=== PATIENT | female | born 1960 | race African-American/Black ===

== ENCOUNTER 2018-04-06 12:18 | Inpatient (IN) ==
--- NOTE | 2018-04-06 07:11 | Discharge Summary ---
<Lyndsey Salcedo E - Last Filed: 04/06/18 09:39> Orders not resulted at time of discharge: Pending orders 04/06/18 01:00 XR hip complete LT [XR] Routine Hemoglobin and Hematocrit [HEME] Routine Date of Encounter: 04/06/18 - Discharge Diagnosis (1) Arthritis of left hip Priority: Primary Status: Chronic (2) Status post total hip replacement, left Priority: Primary Status: Acute (3) Rheumatoid arthritis with positive rheumatoid factor Priority: Secondary Status: Chronic Qualifiers: Rheumatoid arthritis location: unspecified site Qualified Code(s): M05.9 - Rheumatoid arthritis with rheumatoid factor, unspecified (4) Hypertension Priority: Secondary Status: Chronic Qualifiers: Hypertension type: unspecified Qualified Code(s): I10 - Essential (primary ) hypertension - Hospital Course Hospital course: Ms. Cherry is a 57 year old female - Time Spent with Patient Total time spent providing and/or coordinating discharge services: - Discharge Medications Home Medications: Abatacept/Maltose [Orencia (For Outpatient Infusion)] 750 mg IV Q4W 04/06/18 [ History] Aspirin Enteric Coated [Aspirin EC] 325 mg PO BID 10 Days #20 tablet. [Rx] Cholecalciferol (D-3) [Vitamin D] 1,000 unit PO DAILY 04/06/18 [History] Etodolac 400 mg PO BID 04/06/18 [History] Losartan [Cozaar] 25 mg PO DAILY 04/06/18 [History] OxyCODONE Immed Rel [Roxicodone 5 MG] 5 mg PO Q6HR PRN 7 Days #28 tablet [Rx] Allergies/Adverse Reactions: 3 Allergy/AdvReac Type Severity Reaction Status Date / Time Penicillins Allergy Hives Verified 04/06/18 13:25 Primary care physician: PCP NONE - Patient Status Disposition: Transfer Inpatient Rehab Fac Condition: Good - Discharge Instructions Follow Up With: NONE,PCP [Primary Care Provider] - Additional Instructions: Discharge Instructions: Total Hip Replacement Please call [facility] ([phone]), your Primary Care Physician, or report to the Emergency Room if you have any of the following symptoms: Nausea, vomiting, fever greater that 101.5, swelling, chest pain, shortness of breath, increased pain/redness/drainage/odor for your incision site, numbness/ tingling, or any other concerning symptoms. ACTIVITY:Weight-bearing as tolerated for 8 weeks with hip dislocation precautions that physical therapy taught you. You may progress as tolerated under the guidance of your physical therapist. You do not need to sleep with a pillow between your legs. You can also seep on the operative side or on your stomach. MEDICATIONS: Upon discharge resume your home medications. Take all the medications as prescribed. Take a stool softener if taking narcotic pain medications. Stool softeners are only effective if you drink enough fluids. Drink 6-8 glass of water or fluids a day, unless this is not allowed for another health problem. Despite using stool softeners, if you haven't had a bowel movement in 3 days, please switch to a gentle laxative. Gentle laxatives are sold over the counter. You should have a bowel movement within 24 hours, if not call the office. You will be discharged from the hospital with a prescription for pain medication. You are encouraged to decrease the use of narcotic pain medication as tolerated. Should you require a refill, please call the office. [facility] prescribes narcotic pain medication for only 4-6 weeks after surgery. If you require pain medication beyond this time period, you may be referred to your Primary Care Physician or to the Pain Clinic for further evaluation. Plan ahead for refills on pain medication as many narcotics either need to be picked up at the office or mailed. It is best to call 48-72 hours in advance of needing a prescription refill so you don't run out of medication. To help control the post-operative pain, you may take NSAIDs (Aleve,Advil, Motrin, ibuprofen, naprosyn) or Tylenol as prescribed on the bottle in addition to the pain medication. ANTICOAGULATION (blood thinners): Continue your Aspirin, Lovenox or Coumadin as prescribed to help prevent a blood clot in the leg or in the lungs. As long as your incision remains dry and you tolerate the NSAIDs (Aleve, Advil, Motrin, Ibuprofen, Naprosyn), it is OK to use the NSAIDS while you are taking your anticoagulation medication. Should your incision start to drain, stop the NSAID and contact our office. Common symptoms of blood clot in the legs include: localized pain, swelling, calf tenderness, redness or discoloration of the skin. Blood clot in the lung symptoms include: shortness of breath, rapid pulse, sweating, and chest pain that worsens with deep breathing, coughing up blood, lightheadedness, feelings of anxiety. If you experience any of these symptoms notify your physician immediately, go to the emergency room, or if having trouble breathing, call 911. WOUND CARE: Leave the dressing on for 7 to 10days. You may change the dressing if it is saturated greater than 50%. Do not get the dressing wet at anytime. Wash your hands with antibacterial soap, rinse and dry prior to any wound care. If you have heaven the visiting nurse or rehab facility can remove the stapes 10-14 days after surgery and place steri-strips across the wound. Leave the steri-strips in place until they fall off on their own. You may let water from the shower run on top of the steri-strips. If you do not have a visiting nurse or rehab facility, you will need to return to the office at 10-14 days for the heaven to be removed. If you have itching or redness around the dressing call the office. FOLLOW-UP: Please follow up with your surgeon in the orthopedic clinic in 6 weeks from the day of surgery. If you have heaven that need to be removed, you will need to come back to the office in 10-14 days from the day of surgery. <Santosh Lopez - Last Filed: 04/09/18 07:50> Orders not resulted at time of discharge: Pending orders 04/06/18 01:00 XR hip complete LT [XR] Routine Hemoglobin and Hematocrit [HEME] Routine Date of Encounter: 04/09/18 Time of Encounter: 07:50 - Discharge Diagnosis (1) Obesity (BMI 30.0-34.9) Priority: Secondary Status: Chronic (2) Arthritis of left hip Priority: Primary Status: Chronic (3) Status post total hip replacement, left Priority: Primary Status: Acute (4) Rheumatoid arthritis with positive rheumatoid factor Priority: Secondary Status: Chronic Qualifiers: Rheumatoid arthritis location: unspecified site Qualified Code(s): M05.9 - Rheumatoid arthritis with rheumatoid factor, unspecified (5) Hypertension Priority: Secondary Status: Chronic Qualifiers: Hypertension type: unspecified Qualified Code(s): I10 - Essential (primary ) hypertension - Hospital Course Hospital course: Ms. Cherry is a 57 year old female Status post left total hip replacement The patient had an uneventful postoperative course. They received antibiotics and physical therapy and were discharged in stable condition. There will follow -up in the office in 2 weeks. - Time Spent with Patient Total time spent providing and/or coordinating discharge services: Primary care physician: PCP NONE - Patient Status Functional capacity at discharge: uses cane/walker Overall status at discharge: patient is progressing back to baseline
--- NOTE | 2018-04-06 07:12 | Physician Discharge Referral ---
ExtendedCare Referral Info Transfer To: [facility] Provider in Charge: Dr. Santosh Lopez - Diagnosis (1) Arthritis of left hip Priority: Primary Status: Chronic (2) Status post total hip replacement, left Priority: Primary Status: Acute (3) Rheumatoid arthritis with positive rheumatoid factor Priority: Secondary Status: Chronic (4) Hypertension Priority: Secondary Status: Chronic Expected Duration of Placement: Less than 30 days Prognosis: Good Aware of Diagnosis: Patient Aware of Prognosis: Patient - Transfer Medications Home Medications: raNITIdine HCl [Zantac] 150 mg PO BID #60 tablet 10/25/17 [Rx] Allergies/Adverse Reactions: 3 Allergy/AdvReac Type Severity Reaction Status Date / Time Penicillins Allergy Hives Verified 03/30/18 11:45 - Respiratory Orders Smoking Cessation: Smoking cessation has been advised. For more information, call the [employer] Quit Line at 1-495-DNTQ-NOW. - Ancillary Orders May use pressure relief devices daily prn, May go on SARAH w/family/respon green party w /meds at nurse discretion PRN, May consult with Dentist, Hr Generalist, Case Liner PRN - Mobility Orders Chair, Ambulate - Rehabiliation Orders Rehab Potential: Good Rehab Orders: Evaluation for Physical Therapy, Evaluation for Occupational Therapy Other: Total Hip replacement Precautions Apply cold therapy 3-6x/day for 20 minutes at a time. Encourage ambulation throughout the day and incentive spirometer 10x/hour. Elevate affected extremity as tolerated. Brace: Wear hip abduction pillow when laying/sleeping - Treatments Skin tear care topically daily PRN per policy List/Other: Opsite placed. Keep dressing intact until first follow up appointment. If greater than 50% saturated, notify office, remove dressing and place appropriate dressing back in place. Leave Zipline intact. Opsite dressing is water resistant, not water-proof. OK to shower, but do not get dressing wet. - Diet Orders Regular CERTIFICATION: I certify that the transfer of the above named patient to an Extended Care Facility is necessary for the continuing treatment of the diagnosis listed. The above information is true and accurate reflection of patient's current condition. Confidential - Redisclosure prohibited without a patient's written consent.
[~2018-04-06 12:18] MED LIST: Clindamycin 900 MG/50 ML 900 MG/50 ML IV.SOLN IVPB SCH
--- NOTE | 2018-04-06 12:51 | Anesthesia Evaluation PreOp ---
Date of Encounter: 04/06/18 Time of Encounter: 12:48 - Past History Planned Operation: left DAKSHA Cardiac History: HTN, Hyperlipidemia Pulmonary History: Denies Any Significant HX INSPECTOR TYPE History: Denies Any Significant HX Other Medical History: GERD, Other (Rheumatoid arthritis) Anesthesia History: No Prior Anesthetic Complications, Past Anesthesia ( hysterectomy, hemorrhoid, CTR, right total elbow arthroplasty) : No Alcohol Use: none Drug use: none Medications and Allergies raNITIdine HCl [Zantac] 150 mg PO BID #60 tablet 10/25/17 [Rx] Aspirin Enteric Coated [Aspirin EC] 325 mg PO BID 10 Days #20 tablet. [Rx] OxyCODONE Immed Rel [Roxicodone 5 MG] 5 mg PO Q6HR PRN 7 Days #28 tablet [Rx] 3 Allergy/AdvReac Type Severity Reaction Status Date / Time Penicillins Allergy Hives Verified 03/30/18 11:45 - Meds/Allergy Pre-op Review Medications Reviewed: Yes Allergies Reviewed: Yes Beta Blockers on Current Med List: No Anesthesia Results - Imaging EKG: report reviewed (SINUS RHYTHM) Anesthesia Exam Selected Entries 04/06/18 12:34 Temperature 97.4 F L Pulse Rate 97 Respiratory Rate 18 Blood Pressure 126/65 O2 Sat by Pulse Oximetry 94 Weight: 88kg NPO (# of Hours): 8 - HEENT Pupil (Motor): EOMI Mallampati: II Teeth: Missing, Poor dentition Oral Opening: Greater than 3 - INSPECTOR TYPE LOC: Oriented INSPECTOR TYPE Motor: Normal RUE, Normal LUE, Normal RLE, Normal LLE, Normal Face INSPECTOR TYPE Sensory: Normal: RUE, LUE, RLE, LLE, Face - Cardiac Rhythm: Regular Murmur: None - Pulmonary Breath Sounds: bilateral Clear Respiratory Effort: Symmetrical Anesthesia Assess/Plan ASA Score: 3 Modified Kempton Scale for Level of Consciousness: Cooperative, oriented, and tranquil Anesthetic Plan: General (Patient has difficulty laying on side without pain. She and I don't believe she will be able to get her through the surgery easily with spinal and sedation. She would prefer GA.) Autologous Blood: No Monitoring Plan: Standard Monitors Recovery Plan: PACU (Agrees to GA)
[2018-04-06] MEDS ORDERED: Clindamycin 900 MG/50 ML 900 MG/50 ML IV.SOLN IVPB ONE (13:14)
[2018-04-06] MEDS ORDERED: Celecoxib 100 MG CAPSULE PO ONE (13:15)
--- NOTE | 2018-04-06 13:21 | History & Physical Report ---
Date of Encounter: 04/06/18 Time of Encounter: 13:21 24 Hour HP Update - Instructions Instructions: If the History and Physical is less than 30 days old and was completed prior to A.M. admission and or procedure and has NOT been updated on calendar day of procedure please complete this update prior to performing procedure. - Update Patient reports changes in Medical Condition: No Changes in examination, assessment, or condition: No Changes in Medication: No Preop tests/diagnostics Reviewed: Yes Surgery Remains Indicated: Yes Consent for Planned Operative Procedure(s) Verified: Yes - Pre-Operative Checklist Preoperative Checklist Indicated: No Prophylactic Antibiotic Ordered: Yes Is VTE Prophylaxis Indicated?: Yes
[2018-04-06] MEDS: Ringers Solution, Lactated 1,000 ML IVC SCH ×2 (13:27→17:21)
[2018-04-06] MEDS ORDERED: Ketorolac 30 MG/ML VIAL ONE (13:57)
[2018-04-06] MEDS ORDERED: Lidocaine -MPF 2% 2 ML VIAL ONE (13:57)
[2018-04-06] MEDS ORDERED: Ondansetron 4 MG/2 ML VIAL ONE (13:57)
[2018-04-06] MEDS ORDERED: *HR* Midazolam HCl 2 MG/2 ML VIAL ONE (13:57)
[2018-04-06] MEDS ORDERED: *HR* FentaNYL (PF) 100 MCG/2 ML VIAL ONE (13:57)
[2018-04-06] MEDS ORDERED: Dexamethasone 4 MG/ML VIAL ONE (13:57)
[2018-04-06] MEDS ORDERED: *HR* Succinylcholine 200 MG/10 ML VIAL IVP ONE (13:57)
[2018-04-06] MEDS ORDERED: *HR* Propofol 200 MG/20 ML VIAL IVP ONE (13:57)
[2018-04-06] MEDS ORDERED: Ethanol\\Acetic Acid\\Na Ace\\Ben 1,000 ML IRRIG.SOLN IR ONE (15:00)
[2018-04-06] MEDS ORDERED: *HR* Promethazine 25 MG/ML VIAL IVP PRN (16:04)
[2018-04-06] MEDS ORDERED: Albuterol 2.5 MG/3 ML NEBULIZER IH PRN (16:04)
[2018-04-06] MEDS ORDERED: *HR* OxyCODONE Immed Rel 5 MG TABLET PO PRN (16:04)
--- NOTE | 2018-04-06 16:27 | Orthopedic Operative Note ---
Date of procedure: 04/06/18 Pre-op diagnosis: Left hip arthritis with protrusion Post-op diagnosis: same Procedure: Procedure: Left Total Hip Replacment robotic-assisted Estimated blood loss: 200 cc Hardware: Metal and polyethylene replacement. Andi DM Cup: 52 cup Femoral size 7 stem Head: -4 head with Kate Procedural Notes: Grade 4 arthritic changes femoral head acetabular socket, procedure performed with robotic assistance. 7 mm shorter operative versus nonoperative leg is measured by preoperative CT scan Operative procedure: The patient was brought to the operating room and placed on the operating room table. After general anesthesia was administered the patient was placed in the lateral decubitus position with the operative leg up. All pressure points were padded appropriately and the head was stabilized in the neutral position. The operative extremity was prepped and draped in the sterile surgical fashion patient received IV antibiotic prior to skin incision. 3 Steinmann pins were placed in the iliac crest 3 cm proximal to the anterior superior iliac spine this was for the robotic-assisted sensor. This was done through a small 2 cm incision. A standard posterior approach is made to the operative hip, the incision was made through the skin and subcutaneous tissue hemostasis was obtained with Bovie cautery. Using careful sharp dissection the fascia was identified and incised exposing the external rotators. The femoral checkpoint was placed leg length was measured at this time utilizing robotic assistance. The external rotators were released off the greater trochanter and tagged with # 2 FiberWire suture. The capsule was T'd open and the hip was brought into internal rotation. Patient noted to have grade 4 arthritic changes femoral head. The femoral neck cut was made at the appropriate level roughly 13 mm proximal to the lesser trochanter aced on preoperative templating. An anterior capsulotomy was performed for the anterior retractor. Soft tissues removed from the acetabulum. Patient noted to have grade 4 arthritic changes acetabulum. The acetabulum checkpoint was placed confirmed. The acetabulum was then mapped with robotic assistance. Based on the preoperative plan the acetabulum was reamed in one step with a5 1 reamer. The 52 acetabulum was impacted with robotic assistance and 40 degrees of abduction and 20 degrees of anteversion. The hip was brought back in to internal rotation and prepared with the gill box tender followed by the canal finder followed by the reaming process to a size 7/ 8 broaching process in 20 degrees anteversion. It was broached up to the appropriate size 7. Trial reduction revealed leg lengths close to normal. The femoral implant was impacted in place in 20 degrees of anteversion. Trial reduction found the hip to be stable with -4 head and Kate. The trials were removed and the real implants were impacted in place. The hip was reduced, patient had robotic confirmed leg length of 5 mm longer than the contralateral side. The hip had excellent stability with forward flexion to 90 degrees adduction of 30 degrees and internal rotation of 60 degrees. The hip had no shuck. The hips after 2 minutes with a antibacterial solution. It was irrigated out with 2 L of pulse irrigation. The checkpoints were removed, Steinmann pins were removed. The hip was closed by the PA. The deep tissue was irrigated and closed deep with #1 PDS suture superficially with 0 PDS suture and skin was closed with Dermabond and zip tie. The patient was placed in a sterile dressing and abduction pillow. The patient was extubated and transferred to the recovery room in stable condition. Anesthesia: GETA Surgeon: Santosh Lopez Was there an agency sales management assistant present: No Estimated blood loss (cc): 200 Condition: stable Disposition: PACU
[2018-04-06] MEDS: *HR* HYDROmorphone (PF) 1 MG/ML SYRINGE IVP PRN ×6 (17:09→17:42)
[2018-04-06 17:44] LABS: Hematocrit 42.1 % (35.3-44.9); Hemoglobin 13.7 g/dL (11.5-15.4)
[2018-04-06] MEDS ORDERED: *HR* Enoxaparin 30 MG/0.3 ML SYRINGE SQ SCH (18:00)
--- NOTE | 2018-04-06 18:08 | Anesthesia Evaluation Post Op ---
Date of Encounter: 04/06/18 Time of Encounter: 18:00 - Vital Signs Vital Signs: Vital Signs/O2 Sat, Most Current Temp Pulse Resp BP Pulse Ox 98.1 F 83 10 118/73 100 04/06/18 17:54 04/06/18 17:54 04/06/18 17:54 04/06/18 17:54 04/06/18 17:54 - Lungs Lungs: Clear Ascult./Percussion - Airway Airway: Non-obstructed - Cardiovascular Regular Rate - Mental Status Mental Status: Asleep with brisk response to light stimulation - Pain Pain Scale: 10 Pain Scale used: Numeric (1 - 10) - Nausea Vomiting Nausea Vomiting: Not Present - Hydration Hydration: NPO, Has not voided - Discharge PostOp Status: Transfer Patient to floor (patient very somnolent and c/o 10/10 pain then falls back asleep.)
[2018-04-06] MEDS ORDERED: Temazepam 15 MG CAPSULE PO PRN (18:51)
[2018-04-06] MEDS ORDERED: Ondansetron 4 MG/2 ML VIAL IVP PRN (18:51)
[2018-04-06] MEDS ORDERED: Ringers Solution, Lactated 1,000 ML IVC SCH (18:51)
[2018-04-06] MEDS ORDERED: traMADol 50 MG TABLET PO PRN (18:51)
[2018-04-06] MEDS ORDERED: MOM Conc 10 ML UD.LIQ PO PRN (18:51)
[2018-04-06] MEDS ORDERED: Naloxone 0.4 MG/ML INJ IVP PRN (18:51)
[2018-04-06] MEDS ORDERED: Sennosides 8.6 MG TABLET PO PRN (18:51)
[2018-04-06] MEDS: Ascorbic Acid 500 MG TABLET PO SCH (21:24)
[2018-04-06] MEDS: *HR* OxyCODONE/APAP 5/325 TABLET PO PRN (21:24)
[2018-04-06] MEDS: Clindamycin 900 MG/50 ML 900 MG/50 ML IV.SOLN IVPB SCH (23:52)
[2018-04-07] MEDS: *HR* OxyCODONE/APAP 5/325 TABLET PO PRN ×3 (02:55→15:00)
[2018-04-07 05:32] LABS: Hematocrit 40.3 % (35.3-44.9); Hemoglobin 12.8 g/dL (11.5-15.4)
[2018-04-07 05:47] LABS: BUN/Creatinine Ratio 26 (6-26); Blood Urea Nitrogen 18 mg/dL (6-20); Calcium 8.8 mg/dL (8.6-10.3); Carbon Dioxide 24 mEq/L (23-29); Chloride 104 mEq/L (98-107); Glucose 124 mg/dL (70-105); Osmolality,Calculated 285 (280-300); Potassium 5.2 mEq/L (3.5-5.1); Sodium 136 mEq/L (136-145); eGFR For African Americans > 60 (> 60); eGFR For Non-African Americans > 60 (> 60)
--- NOTE | 2018-04-07 06:24 | Orthopedics Progress Note ---
Date of Encounter: 04/07/18 Time of Encounter: 06:23 - Assessment and Plan (1) Obesity (BMI 30.0-34.9) Current Visit: Yes Status: Chronic (2) Arthritis of left hip Current Visit: No Status: Chronic (3) Status post total hip replacement, left Current Visit: No Status: Acute (4) Rheumatoid arthritis with positive rheumatoid factor Current Visit: No Status: Chronic Qualifiers: Rheumatoid arthritis location: unspecified site Qualified Code(s): M05.9 - Rheumatoid arthritis with rheumatoid factor, unspecified (5) Hypertension Current Visit: No Status: Chronic Qualifiers: Hypertension type: unspecified Qualified Code(s): I10 - Essential (primary ) hypertension Subjective Interval history: Patient was seen this morning doing well without complaints. Afebrile vital signs stable. Operative extremity: Neurovascularly intact Dressing clean dry and intact Calves nontender Assessment and plan: Continue with postoperative care Hematocrit 40 Objective Vital signs: Vital Signs Temp Pulse Resp BP Pulse Ox 04/07/18 04:31 98.1 F 66 16 103/65 99 04/07/18 00:23 98.3 F 91 16 107/74 97 04/06/18 21:19 98.7 F 81 16 121/84 97 04/06/18 19:25 97.7 F 84 16 120/81 97 04/06/18 18:40 97.7 F 70 16 113/73 96 04/06/18 18:14 100 04/06/18 17:54 98.1 F 83 10 118/73 100 04/06/18 17:44 85 12 129/80 100 04/06/18 17:34 98 F 87 12 136/84 100 04/06/18 17:24 93 16 149/88 99 04/06/18 17:14 96 16 133/93 95 04/06/18 17:04 98.4 F 94 16 123/101 97 04/06/18 13:19 97.4 F L 97 18 126/65 94 04/06/18 12:34 97.4 F L 97 18 126/65 94 Intake and Output 04/06/18 04/06/18 04/07/18 15:59 23:59 07:59 Intake Total 1150 / 1150 50 / 50 Output Total 200 / 200 200 / 200 Balance 950 / 950 -150 / -150 Intake: IV Fluids 1050 / 1050 50 / 50 Lactated Ringers 1,000 ML @ 25 1000 / 1000 mls/hr IVC .Q24H SARAH Rx#: [id number] Cleocin Premix 900 MG/50 ML 900 50 / 50 50 / 50 mg In 50 ml @ 50 mls/hr IVPB Q8HR [facility] Rx#:[id number] Oral 100 / 100 Output: Urine 200 / 200 Estimated Blood Loss 200 / 200 Other: # Voids 1 Weight 88.451 kg Blood Glucose* 106 - Labs CBC & BMP: 04/07/18 04:42 04/07/18 04:42 Labs: Abnormal lab results Potassium 5.2 mEq/L (3.5-5.1) H 04/07/18 04:42 Glucose 124 mg/dL (70-105) H 04/07/18 04:42 - VTE Documentation of Mechanical Device: Venous foot pump, device Consult Discharge Plan - Plan Referrals: NONE,PCP [Primary Care Provider] -
[2018-04-07] MEDS: *HR* Enoxaparin 30 MG/0.3 ML SYRINGE SQ SCH ×2 (06:26→17:02)
[2018-04-07] MEDS: Multivit/Ca/Min/Fe/FA 1 TAB TABLET PO SCH (08:02)
[2018-04-07] MEDS: Ascorbic Acid 500 MG TABLET PO SCH ×2 (08:02→17:02)
[2018-04-07] MEDS: Clindamycin 900 MG/50 ML 900 MG/50 ML IV.SOLN IVPB SCH (08:02)
[2018-04-07] MEDS: Cholecalciferol (D-3) 1,000 UNIT TABLET PO SCH (08:02)
--- NOTE | 2018-04-07 15:42 | Event Note ---
Date of Encounter: 04/07/18 Time of Encounter: 15:41 PCR - POD#1 Left THR 04/06/18 Patient seen at bedside. Labs reviewed. Mild Hyperkalemia - monitoring Pain control: adequate Participating in PT. All questions and concerns addressed. Educated on use of incentive spirometer. Encouraged ambulation and proper hydration. Patient educated on post-operative restrictions and post-operative care. Addressed: see above Discharge plan: D/C to [facility] /.
[2018-04-08] MEDS: *HR* OxyCODONE Immed Rel 5 MG TABLET PO PRN ×3 (03:06→16:24)
[2018-04-08 03:39] LABS: Hematocrit 34.9 % (35.3-44.9)
[2018-04-08 03:43] LABS: Hemoglobin 11.2 g/dL (11.5-15.4)
[2018-04-08 03:51] LABS: BUN/Creatinine Ratio 29 (6-26); Blood Urea Nitrogen 20 mg/dL (6-20); Calcium 8.5 mg/dL (8.6-10.3); Carbon Dioxide 25 mEq/L (23-29); Chloride 102 mEq/L (98-107); Glucose 116 mg/dL (70-105); Osmolality,Calculated 282 (280-300); Sodium 134 mEq/L (136-145); eGFR For African Americans > 60 (> 60); eGFR For Non-African Americans > 60 (> 60)
[2018-04-08] MEDS: *HR* Enoxaparin 30 MG/0.3 ML SYRINGE SQ SCH ×2 (06:07→16:24)
[2018-04-08] MEDS: Ascorbic Acid 500 MG TABLET PO SCH ×2 (08:18→16:24)
[2018-04-08] MEDS: Multivit/Ca/Min/Fe/FA 1 TAB TABLET PO SCH (08:18)
[2018-04-08] MEDS: Cholecalciferol (D-3) 1,000 UNIT TABLET PO SCH (08:18)
--- NOTE | 2018-04-08 12:31 | Orthopedics Progress Note ---
Date of Encounter: 04/08/18 Time of Encounter: 09:30 - Assessment and Plan (1) Status post total hip replacement, left Current Visit: No Status: Acute Patient seen at bedside. Patient was seen this morning doing well, without complaints. Afebrile, vital signs stable. Labs reviewed. H/H - stable, asymptomatic - 11.2/34.9 Sodium 134 - asymptomatic Pain control: adequate Participating in PT. All questions and concerns addressed. Educated on use of incentive spirometer. Encouraged ambulation and proper hydration. Patient educated on post-operative restrictions and post-operative care. Assessment and plan: Continue with postoperative care Discharge plan: [facility] on [place]. (2) Arthritis of left hip Current Visit: No Status: Chronic (3) Rheumatoid arthritis with positive rheumatoid factor Current Visit: No Status: Chronic Qualifiers: Rheumatoid arthritis location: unspecified site Qualified Code(s): M05.9 - Rheumatoid arthritis with rheumatoid factor, unspecified (4) Hypertension Current Visit: No Status: Chronic Qualifiers: Hypertension type: unspecified Qualified Code(s): I10 - Essential (primary ) hypertension (5) Obesity (BMI 30.0-34.9) Current Visit: Yes Status: Chronic Subjective Principal diagnosis: s/p Left THR 04/06 Interval history: Patient seen at bedside. Patient was seen this morning doing well, without complaints. Afebrile, vital signs stable. Operative extremity: Neurovascularly intact Dressing clean dry and intact Calves nontender Labs reviewed. H/H - stable, asymptomatic - 11.2/34.9 Sodium 134 - asymptomatic Pain control: adequate Participating in PT. All questions and concerns addressed. Educated on use of incentive spirometer. Encouraged ambulation and proper hydration. Patient educated on post-operative restrictions and post-operative care. Assessment and plan: Continue with postoperative care Discharge plan: [facility] DC [place]. Objective Vital signs: Vital Signs Temp Pulse Resp BP Pulse Ox 04/08/18 12:11 97.7 F 79 15 103/70 98 04/08/18 08:15 107/73 04/08/18 07:30 97.9 F 92 16 99/72 98 04/08/18 05:41 111/67 04/07/18 23:48 97.9 F 96 16 97/65 98 04/07/18 19:04 97.7 F 95 16 101/63 93 04/07/18 15:43 97.4 F L 96 15 112/77 95 Intake and Output 04/07/18 04/08/18 04/08/18 23:59 07:59 15:59 Intake Total 440 / 440 120 / 120 Output Total 200 / 200 200 / 200 100 / 100 Balance 240 / 240 -200 / -200 20 / 20 Intake: Oral 440 / 440 120 / 120 Output: Urine 200 / 200 200 / 200 100 / 100 Other: Meal Breakfast Percent of Meal Consumed 100% # Voids 1 1 Incision: clean and dry - Labs CBC & BMP: 04/08/18 03:09 04/08/18 03:09 Labs: Abnormal lab results Hgb 11.2 g/dL (11.5-15.4) L D 04/08/18 03:09 Hct 34.9 % (35.3-44.9) L 04/08/18 03:09 Sodium 134 mEq/L (136-145) L 04/08/18 03:09 BUN/Creatinine Ratio 29 (6-26) H 04/08/18 03:09 Glucose 116 mg/dL (70-105) H 04/08/18 03:09 Calcium 8.5 mg/dL (8.6-10.3) L 04/08/18 03:09 - VTE Documentation of Mechanical Device: Venous foot pump, device Consult Discharge Plan - Plan Referrals: NONE,PCP [Primary Care Provider] -
[2018-04-09] MEDS: *HR* OxyCODONE Immed Rel 5 MG TABLET PO PRN (01:32)
[2018-04-09] MEDS: *HR* Enoxaparin 30 MG/0.3 ML SYRINGE SQ SCH (05:49)
--- NOTE | 2018-04-09 07:51 | Orthopedics Progress Note ---
Date of Encounter: 04/09/18 Time of Encounter: 07:50 - Assessment and Plan (1) Obesity (BMI 30.0-34.9) Current Visit: Yes Status: Chronic (2) Arthritis of left hip Current Visit: No Status: Chronic (3) Status post total hip replacement, left Current Visit: No Status: Acute (4) Rheumatoid arthritis with positive rheumatoid factor Current Visit: No Status: Chronic Qualifiers: Rheumatoid arthritis location: unspecified site Qualified Code(s): M05.9 - Rheumatoid arthritis with rheumatoid factor, unspecified (5) Hypertension Current Visit: No Status: Chronic Qualifiers: Hypertension type: unspecified Qualified Code(s): I10 - Essential (primary ) hypertension Subjective Principal diagnosis: s/p Left THR 04/06 Interval history: Patient was seen this morning doing well without complaints. Afebrile vital signs stable. Operative extremity: Neurovascularly intact Dressing clean dry and intact Calves nontender Assessment and plan: Continue with postoperative care Plan for discharge today if cleared by PT Objective Vital signs: Vital Signs Temp Pulse Resp BP Pulse Ox 04/09/18 06:57 98.2 F 89 16 108/72 98 04/08/18 23:36 97.8 F 96 16 114/75 93 04/08/18 18:44 98.2 F 93 16 100/69 97 04/08/18 15:07 97.9 F 104 18 108/74 98 04/08/18 12:11 97.7 F 79 15 103/70 98 04/08/18 08:15 107/73 Intake and Output 04/08/18 04/08/18 04/09/18 15:59 23:59 07:59 Intake Total 240 / 240 400 / 400 100 / 100 Output Total 100 / 100 400 / 400 Balance 140 / 140 0 / 0 100 / 100 Intake: Oral 240 / 240 400 / 400 100 / 100 Output: Urine 100 / 100 400 / 400 Other: Meal Lunch Percent of Meal Consumed 80% # Voids 1 1 1 - Labs CBC & BMP: 04/08/18 03:09 04/08/18 03:09 Labs: Abnormal lab results Hgb 11.2 g/dL (11.5-15.4) L D 04/08/18 03:09 Hct 34.9 % (35.3-44.9) L 04/08/18 03:09 Sodium 134 mEq/L (136-145) L 04/08/18 03:09 BUN/Creatinine Ratio 29 (6-26) H 04/08/18 03:09 Glucose 116 mg/dL (70-105) H 04/08/18 03:09 Calcium 8.5 mg/dL (8.6-10.3) L 04/08/18 03:09 - VTE Documentation of Mechanical Device: Venous foot pump, device Consult Discharge Plan - Plan Additional Instructions: Discharge Instructions: Total Hip Replacement Please call [facility] ([phone]), your Primary Care Physician, or report to the Emergency Room if you have any of the following symptoms: Nausea, vomiting, fever greater that 101.5, swelling, chest pain, shortness of breath, increased pain/redness/drainage/odor for your incision site, numbness/ tingling, or any other concerning symptoms. ACTIVITY:Weight-bearing as tolerated for 8 weeks with hip dislocation precautions that physical therapy taught you. You may progress as tolerated under the guidance of your physical therapist. You do not need to sleep with a pillow between your legs. You can also seep on the operative side or on your stomach. MEDICATIONS: Upon discharge resume your home medications. Take all the medications as prescribed. Take a stool softener if taking narcotic pain medications. Stool softeners are only effective if you drink enough fluids. Drink 6-8 glass of water or fluids a day, unless this is not allowed for another health problem. Despite using stool softeners, if you haven't had a bowel movement in 3 days, please switch to a gentle laxative. Gentle laxatives are sold over the counter. You should have a bowel movement within 24 hours, if not call the office. You will be discharged from the hospital with a prescription for pain medication. You are encouraged to decrease the use of narcotic pain medication as tolerated. Should you require a refill, please call the office. [facility] prescribes narcotic pain medication for only 4-6 weeks after surgery. If you require pain medication beyond this time period, you may be referred to your Primary Care Physician or to the Pain Clinic for further evaluation. Plan ahead for refills on pain medication as many narcotics either need to be picked up at the office or mailed. It is best to call 48-72 hours in advance of needing a prescription refill so you don't run out of medication. To help control the post-operative pain, you may take NSAIDs (Aleve,Advil, Motrin, ibuprofen, naprosyn) or Tylenol as prescribed on the bottle in addition to the pain medication. ANTICOAGULATION (blood thinners): Continue your Aspirin, Lovenox or Coumadin as prescribed to help prevent a blood clot in the leg or in the lungs. As long as your incision remains dry and you tolerate the NSAIDs (Aleve, Advil, Motrin, Ibuprofen, Naprosyn), it is OK to use the NSAIDS while you are taking your anticoagulation medication. Should your incision start to drain, stop the NSAID and contact our office. Common symptoms of blood clot in the legs include: localized pain, swelling, calf tenderness, redness or discoloration of the skin. Blood clot in the lung symptoms include: shortness of breath, rapid pulse, sweating, and chest pain that worsens with deep breathing, coughing up blood, lightheadedness, feelings of anxiety. If you experience any of these symptoms notify your physician immediately, go to the emergency room, or if having trouble breathing, call 911. WOUND CARE: Leave the dressing on for 7 to 10days. You may change the dressing if it is saturated greater than 50%. Do not get the dressing wet at anytime. Wash your hands with antibacterial soap, rinse and dry prior to any wound care. If you have heaven the visiting nurse or rehab facility can remove the stapes 10-14 days after surgery and place steri-strips across the wound. Leave the steri-strips in place until they fall off on their own. You may let water from the shower run on top of the steri-strips. If you do not have a visiting nurse or rehab facility, you will need to return to the office at 10-14 days for the heaven to be removed. If you have itching or redness around the dressing call the office. FOLLOW-UP: Please follow up with your surgeon in the orthopedic clinic in 6 weeks from the day of surgery. If you have heaven that need to be removed, you will need to come back to the office in 10-14 days from the day of surgery. Referrals: NONE,PCP [Primary Care Provider] -
[2018-04-09] MEDS: Ascorbic Acid 500 MG TABLET PO SCH (08:12)
[2018-04-09] MEDS: Cholecalciferol (D-3) 1,000 UNIT TABLET PO SCH (08:12)
[2018-04-09] MEDS: Multivit/Ca/Min/Fe/FA 1 TAB TABLET PO SCH (08:12)
[2018-04-09 11:18] VITALS: BP 116/80
== END 2018-04-09 13:54 | DRG 470 ==
LOC: SAMDAY 12:18 → 3NENU 17:52
PROVIDERS: ADMIT Orthopaedic Surgery; ATTEND Orthopaedic Surgery